=== PATIENT | female | born 1985 | race Caucasian/White ===

== ENCOUNTER 2018-03-18 09:38 | Emergency (ER) | payer SELFPAY ==
[~2018-03-18] VITALS: Ht 157.5 cm; Wt 67.7 kg
[2018-03-18] MEDS ORDERED: CLINDAMYCIN HC150 MG PO (10:26)
[2018-03-18] MEDS ORDERED: TRAMADOL HCL50 MG PO (10:26)
[2018-03-18] MEDS ORDERED: OXYCODONE HCL5 MG PO (10:44)
[2018-03-18 10:55] VITALS: BP 126/92
== END 2018-03-18 10:56 | disposition home or self-care (01) ==
LOC: EME 09:38
DX: K04.7 Periapical abscess without sinus (principal)
CPT/HCPCS: 99281; 99284